=== PATIENT | female | born 1975 | race Caucasian/White ===

== ENCOUNTER 2016-05-18 12:04 | Emergency (ER) | payer BC ==
[~2016-05-18] VITALS: Ht 167.6 cm; Wt 113.4 kg
--- NOTE | 2016-05-18 12:45 | EKG ---
[address] [address] Test Date: 2016-05-18 Test Time: 12:44:37 Pat Name: HENNY DUMONT Department: Room: Gender: F Rod Placer: : 1975 Requested By: YOVANI RESENDEZ Order Number: [id number] Reading MD: Measurements Intervals [place] Rate: 65 P: 24 VT: 146 QRS: 16 QRSD: 96 T: 10 QT: 438 QTc: 461 Interpretive Statements SINUS RHYTHM NORMAL ECG RI6.01 Unconfirmed report No previous ECG available for comparison
[2016-05-18] MEDS: ONDANSETRON PF 4 MG/2 ML VIAL. IV ONE (12:49)
[2016-05-18] MEDS: FAMOTIDINE 20 MG/2 ML VIAL IVP ONE (12:49)
[2016-05-18] MEDS: IV NORMAL SALINE 1,000ML 1,000 ML IV SCH (12:49)
--- NOTE | 2016-05-18 12:56 | PHYS DOC ---
General Chief Complaint: n/v Stated Complaint: n/v,ABDOMINAL PAIN Time Seen by MD: 12:11 Source: patient Exam Limitations: no limitations Problems: History of Present Illness Initial Comments Pt is 40/F to ED c/o n/v. Pt states she's had few days right sided abdominal discomfort, n/v. Last night hurt so bad thought she may pass out. Persistent N/V today, no reported diarrhea no travel/bad food exposure +sick contacts similar sx. No blood in emesis, no fever/chills/cp/sob/ochoa/focal weakness. Appetite preserved but scared to eat w/nausea. No noted urinary sx Timing/Duration: getting worse (few days) Severity: moderate Modifying Factors: worse with eating, improves with rest Associated Symptoms: malaise, nausea/vomiting, other Allergies: Coded Allergies: No Known Drug Allergies (Unverified , 11/06/15) Past Medical History Medical History: other (depression, DM, kidney stones, UTI) Surgical History: cholecystectomy Social History Smoker: non-smoker Alcohol: none Drugs: none Review of Systems Constitutional: denies chills, denies diaphoresis, denies fever, malaise Respiratory: denies cough, denies shortness of breath Cardiovascular: denies chest pain, denies palpitations Gastrointestinal: see HPI Genitourinary: denies dysuria, denies frequency, denies hematuria Musculoskeletal: denies back pain, denies joint swelling, denies neck pain Psychiatric/Neurological: denies headache, denies numbness, denies paresthesia Physical Exam General Appearance: WD/WN, no apparent distress Eyes: bilateral eye EOMI, bilateral eye PERRL, bilateral eye normal inspection Ear, Nose, Throat: hearing grossly normal, normal ENT inspection Neck: non-tender, supple Respiratory: normal breath sounds, no respiratory distress Cardiovascular: normal peripheral pulses, regular rate, rhythm Gastrointestinal: soft (ND, generalized R-sided TTP no r/g/mass, neg keller/ mcburney) Rectal: deferred Back: no CVA tenderness, no vertebral tenderness Extremities: non-tender, normal inspection Neurologic/Psychiatric: [employer] II-XII nml as tested, no motor/sensory deficits, alert, normal mood/affect, oriented x 3 Skin: normal color, warm/dry Orders, Labs, Meds EKG: NSR 65 bpm, diffuse T flattening no STEMI PATIENT: JULIA,AUSTIN ACCOUNT: [id number] : 1975 LOCATION: ER AGE: 40 SEX: F EXAM STATUS: REG ER ORD. PHYSICIAN: YOVANI RESENDEZ DO REASON: n/v PROCEDURE: ACUTE ABDOMEN SERIES Acute abdomen series with chest, 3 views, 05/18/2016: History: Epigastric pain Gas is present in large and small bowel without significant bowel distention. There are a few small scattered air-fluid levels. No free air is evident in the abdomen. There is no evidence of organomegaly. There is a radiopacity overlying the left kidney raising the possibility of an intrarenal calculus. Surgical clips are present in the right upper quadrant compatible with a previous cholecystectomy. The heart is at the upper limits of normal in size. The pulmonary vascularity is within normal limits. No pulmonary infiltrates are seen. IMPRESSION: 1. A few small scattered air-fluid levels in the GI tract suggest a mild ileus. 2. Probable left intrarenal calculus. 3. Borderline cardiomegaly. DICTATED AND SIGNED BY: ANANDA WELLINGTON MD DATE: 05/18/16 1340 CC: HUGH FERNANDO MD; YOVANI RESENDEZ DO ~ Labs reassuring, UA + infection but SE contaminated await C/S 1407: Pt feeling much better with fluids/antiemetics. Ready for d/c Departure Time of Disposition: 14:08 Disposition: 01 HOME, SELF-CARE Diagnosis: gastroenteritis Condition: GOOD Patient Instructions: Viral Gastroenteritis, [id number] Additional Instructions: Work excuse thru 05/20 if needed. Rest, no strenuous activity. Aggressive hydration with gatorade, water. Clear liquids, advance slowly as tolerated. OTC tylenol/ibuprofen as needed. Rx: reglan, dicyclomine Follow up with your doctor in 3-5 days if not better. Return to ED with new or changing symptoms. YOVANI RESENDEZ DO May 18, 2016 12:56
[2016-05-18 12:57] LABS: BASO # 0.1 x10^3/uL (0.0-0.2); BASO % 1 % (0-3); EOS # 0.1 x10^3/uL (0.0-0.7); EOS % 1 % (0-3); HEMATOCRIT 44.2 % (36.0-47.0); HEMOGLOBIN 14.5 g/dL (12.0-15.5); LYMPH # 1.6 x10^3/uL (1.0-4.8); LYMPH % 29 % (24-48); MEAN CORPUSCULAR HEMOGLOBIN 29 pg (25-35); MEAN CORPUSCULAR HGB CONC 33 g/dL (31-37); MEAN CORPUSCULAR VOLUME 88 fL (79-100); MONO # 0.4 x10^3/uL (0.0-1.1); MONO % 7 % (0-9); NEUT # 3.4 x10^3uL (1.8-7.7); NEUT % 62 % (31-73); PLATELET COUNT 292 x10^3/uL (140-400); RED BLOOD COUNT 5.04 x10^6/uL (3.50-5.40); WHITE BLOOD COUNT 5.5 x10^3/uL (4.0-11.0)
[2016-05-18 13:10] LABS: ALBUMIN 3.7 g/dL (3.4-5.0); ALBUMIN/GLOBULIN RATIO 1.1 (1.0-1.7); CALCIUM 8.9 mg/dL (8.5-10.1); CREATININE 0.8 mg/dL (0.6-1.0); POTASSIUM 4.2 mmol/L (3.5-5.1); TOTAL BILIRUBIN 0.5 mg/dL (0.2-1.0); TOTAL PROTEIN 7.1 g/dL (6.4-8.2)
[2016-05-18 13:34] LABS: C REACTIVE PROTEIN 8.7 mg/L (0-3.3)
[2016-05-18 13:48] LABS: BACTERIA,URINE MOD /HPF (0-FEW); BILIRUBIN,URINE NEG (NEG); CLARITY,URINE CLOUDY; COLOR,URINE YELLOW; GLUCOSE,URINE NEG (NEG); NITRITE,URINE NEG (NEG); UROBILINOGEN,URINE 2 mg/dL (0.2 mg/dL)
[2016-05-18 13:49] LABS: SQUAMOUS EPITHELIAL CELL,UR FEW /LPF
[2016-05-18 13:50] LABS: AMPHETAMINE/METHAMPHETAMINE NEG (NEG); BARBITURATES NEG (NEG); BENZODIAZEPINES NEG (NEG); CANNABINOIDS NEG (NEG); COCAINE NEG (NEG); METHADONE NEG (NEG); OPIATES NEG (NEG); PHENCYCLIDINE NEG (NEG)
--- NOTE | 2016-05-18 13:54 | RAD ---
Acute abdomen series with chest, 3 views, 05/18/2016: History: Epigastric pain Gas is present in large and small bowel without significant bowel distention. There are a few small scattered air-fluid levels. No free air is evident in the abdomen. There is no evidence of organomegaly. There is a radiopacity overlying the left kidney raising the possibility of an intrarenal calculus. Surgical clips are present in the right upper quadrant compatible with a previous cholecystectomy. The heart is at the upper limits of normal in size. The pulmonary vascularity is within normal limits. No pulmonary infiltrates are seen. IMPRESSION: 1. A few small scattered air-fluid levels in the GI tract suggest a mild ileus. 2. Probable left intrarenal calculus. 3. Borderline cardiomegaly.
[2016-05-18 14:00] VITALS: BP 133/61
[2016-05-18] MEDS ORDERED: DICY20TA3 PO (14:11)
[2016-05-18] MEDS ORDERED: METO10TA81 PO (14:11)
== END 2016-05-18 14:20 | disposition home or self-care (01) ==
LOC: ER 12:04
DX: K52.9 Noninfective gastroenteritis and colitis, unspecified (principal); Z87.442 Personal history of urinary calculi; E11.9 Type 2 diabetes mellitus without complications; Z87.440 Personal history of urinary (tract) infections
CPT/HCPCS: 36415; 74022; 80053; 81001; 81025; 82550; 82947; 83605; 83690; 83735; 83880; 84484; 85027; 85610; 85730; 86140; 87086; 87186; 93005; 96361; 96374; 96375; 99285; G0480; G0481; J2405; S0028; J7030

== ENCOUNTER → 2016-09-09 | Outpatient (CLI) | payer BC ==
[~2016-09-09] MED LIST: DICY20TA3 PO; METO10TA81 PO
--- NOTE | 2016-09-09 15:57 | RAD ---
Left knee, 3 views, 09/09/2016: History: Knee pain No fracture or dislocation is identified. There is minimal spurring medially at the knee joint and at the patellofemoral articulation. No significant joint effusion is seen. Subcutaneous edema is evident anteriorly. IMPRESSION: No acute bony abnormality is detected.
== END | disposition home or self-care (01) ==
LOC: DXRADRC 14:55
PROVIDERS: ATTEND Family Medicine
DX: M25.862 Other specified joint disorders, left knee (principal); R60.0 Localized edema
CPT/HCPCS: 73562

== ENCOUNTER → 2016-10-01 | Outpatient (CLI) | payer BC ==
[~2016-10-01] MED LIST changes: +POTA20PA PO
--- NOTE | 2016-10-01 11:15 | RAD ---
Pelvic ultrasound, 10/01/2016: History: Dysfunctional uterine bleeding Transabdominal and transvaginal scans were obtained. The uterus measures 10.8 x 8.0 x 6.2 cm. There is a 5.7 cm predominantly hyperechoic mass in the posterior aspect of the uterus. It is distorting the central uterine echo complex which measures approximately 7 mm in AP dimension. There is an additional faint 1.8 cm focus of decreased echogenicity seen posteriorly in the myometrium. These are probably uterine fibroids. The ovaries are of normal size. Small follicular cysts are present in the right ovary. There is a 2.2 cm simple appearing cyst in the left ovary. The adnexal regions are otherwise unremarkable. No significant volume of free fluid is seen. IMPRESSION: 1. Enlarged uterus with a dominant 5.7 cm mass which is most likely a uterine fibroid. 2. Small left ovarian cyst.
== END | disposition home or self-care (01) ==
LOC: US 09:42
PROVIDERS: ATTEND Physician Assistant Medical
DX: N93.8 Other specified abnormal uterine and vaginal bleeding (principal); D25.9 Leiomyoma of uterus, unspecified; N83.292 Other ovarian cyst, left side
CPT/HCPCS: 76830; 76856

== ENCOUNTER 2016-10-02 20:10 | Emergency (ER) | payer BC ==
[~2016-10-02] VITALS: Ht 170.2 cm; Wt 129.7 kg
[~2016-10-02 20:10] MED LIST changes: -POTA20PA PO
[2016-10-02] MEDS ORDERED: IV NORMAL SALINE 1,000ML 500 ML IV SCH (20:29)
--- NOTE | 2016-10-02 20:29 | PHYS DOC ---
General Chief Complaint: VAGINAL BLEEDING Stated Complaint: VAGINAL BLEEDING X 1 MONTH Time Seen by MD: 20:24 Source: patient Exam Limitations: no limitations Problems: History of Present Illness Initial Comments Pt is 40/F to ED c/o vaginal bleeding. Pt states she's had vaginal bleeding for over a month. States she's going thru a pad every two minutes (I was in room with pt extended period with no pad change or pervasive bleeding). States she had US yesterday (see attached below ) and has been referred to PAYMENT PROCESSOR. Pt has an appointment scheduled for October. She has come because she doesn't want to wait that long. No new symptoms since she saw her doctor, no pain/palpitations/headache/leahy/lightheaded/dizzy/ cp. I advised her that we would check some labs and determine if emergent need for PAYMENT PROCESSOR. PATIENT: HENNY DUMONT ACCOUNT: [id number] : 1975 LOCATION: US AGE: 40 SEX: F EXAM STATUS: REG CLI ORD. PHYSICIAN: JODI PANDEY REASON: DUB PROCEDURE: US PELVIS W/TV Pelvic ultrasound, 10/01/2016: History: Dysfunctional uterine bleeding Transabdominal and transvaginal scans were obtained. The uterus measures 10.8 x 8.0 x 6.2 cm. There is a 5.7 cm predominantly hyperechoic mass in the posterior aspect of the uterus. It is distorting the central uterine echo complex which measures approximately 7 mm in AP dimension. There is an additional faint 1.8 cm focus of decreased echogenicity seen posteriorly in the myometrium. These are probably uterine fibroids. The ovaries are of normal size. Small follicular cysts are present in the right ovary. There is a 2.2 cm simple appearing cyst in the left ovary. The adnexal regions are otherwise unremarkable. No significant volume of free fluid is seen. IMPRESSION: 1. Enlarged uterus with a dominant 5.7 cm mass which is most likely a uterine fibroid. 2. Small left ovarian cyst. DICTATED AND SIGNED BY: ANANDA WELLINGTON MD DATE: 10/01/16 1107 CC: JODI PANDEY; HUGH FERNANDO MD ~ Timing/Duration: other (month) Severity/Quality: severe Location: vaginal Radiation: none Activities at Onset: none Prior Genitourinary Problems: none Modifying Factors: worse with movement, improves with rest, worse with urinating Associated Symptoms: other Allergies: Coded Allergies: No Known Drug Allergies (Unverified , 11/06/15) Past Medical History Medical History: other (depression, DM, kidney stones, UTI) Surgical History: cholecystectomy Social History Smoker: non-smoker Alcohol: none Drugs: none Review of Systems Constitutional: denies chills, denies diaphoresis, denies fever, denies malaise , denies weakness EENTM: denies eye pain, denies blurred vision, denies tearing, denies ear pain , denies nose pain Respiratory: denies cough, denies shortness of breath, denies wheezing Cardiovascular: denies chest pain, denies edema, denies palpitations, denies syncope Gastrointestinal: denies abdominal pain, denies diarrhea, denies nausea, denies vomiting Genitourinary: see HPI Musculoskeletal: denies back pain, denies joint swelling, denies neck pain Psychiatric/Neurological: denies headache, denies numbness, denies paresthesia Physical Exam General Appearance: WD/WN, no apparent distress HEENT: normal ENT inspection Neck: non-tender, supple Cardiovascular/Respiratory: normal peripheral pulses, normal breath sounds, no respiratory distress Gastrointestinal: normal bowel sounds, non tender, soft Rectal: deferred Back: no CVA tenderness, no vertebral tenderness Extremities: non-tender, normal inspection Neurologic/Psychiatric: rn discharge II-XII nml as tested, no motor/sensory deficits, alert, oriented x 3 Skin: normal color, warm/dry Orders, Labs, Meds K+ 3.3, Hb 11.4 normocytic 20meq KCL given I discussed findings with pt. No bleeding or pads changed in ED. No evidence hemodynamic instability. Pt stable to go home with K+ replacement and close PCP follow up Wednesday. See departure instructions. Departure Time of Disposition: 21:55 Disposition: HOME, SELF-CARE Diagnosis: DUB, Uterine fibroids Condition: STABLE Patient Instructions: Uterine Bleeding, Dysfunctional, [id number], Uterine Fibroid, [id number]-[id number] Additional Instructions: Rest, no strenuous activity. Aggressive hydration with gatorade, water. OTC ibuprofen 800mg every 8 hours (will decrease uterine artery blood flow, thereby decreasing the quantity and rate of bleeding). Rx: klor-con 20meq (3) take daily Follow up with your doctor Wednesday for recheck and to try to move your PAYMENT PROCESSOR appointment to this week. Return to ED with new or changing symptoms. YOVANI RESENDEZ DO Oct 02, 2016 20:28
[2016-10-02] MEDS ORDERED: MORPHINE SULFATE 4 MG/ML DISP.SYRIN. IV/SQ PRN (20:30)
[2016-10-02] MEDS ORDERED: IBUPROFEN 800 MG TABLET. PO ONE (21:00)
[2016-10-02 21:12] LABS: BASO # 0.1 x10^3/uL (0.0-0.2); BASO % 1 % (0-3); EOS # 0.3 x10^3/uL (0.0-0.7); EOS % 2 % (0-3); HEMATOCRIT 34.9 % (36.0-47.0); HEMOGLOBIN 11.4 g/dL (12.0-15.5); LYMPH # 2.6 x10^3/uL (1.0-4.8); LYMPH % 23 % (24-48); MEAN CORPUSCULAR HEMOGLOBIN 28 pg (25-35); MEAN CORPUSCULAR HGB CONC 33 g/dL (31-37); MEAN CORPUSCULAR VOLUME 87 fL (79-100); MONO # 0.4 x10^3/uL (0.0-1.1); MONO % 4 % (0-9); NEUT # 8.1 x10^3uL (1.8-7.7); NEUT % 70 % (31-73); PLATELET COUNT 381 x10^3/uL (140-400); RED BLOOD COUNT 4.03 x10^6/uL (3.50-5.40); RED CELL DISTRIBUTION WIDTH 14.6 % (11.5-14.5); WHITE BLOOD COUNT 11.6 x10^3/uL (4.0-11.0)
[2016-10-02 21:24] LABS: CALCIUM 8.5 mg/dL (8.5-10.1); CREATININE 0.7 mg/dL (0.6-1.0); GFR 92.2; POTASSIUM 3.3 mmol/L (3.5-5.1)
[2016-10-02] MEDS ORDERED: POTA20PA PO (21:55)
[2016-10-02] MEDS ORDERED: POTASSIUM CHLORIDE 20 MEQ TABLET.ER. PO ONE (22:15)
[2016-10-02 22:22] VITALS: BP 142/71
== END 2016-10-02 22:32 | disposition home or self-care (01) ==
LOC: ER 20:10
DX: N93.8 Other specified abnormal uterine and vaginal bleeding (principal); D25.9 Leiomyoma of uterus, unspecified; E11.9 Type 2 diabetes mellitus without complications; Z87.442 Personal history of urinary calculi; Z87.440 Personal history of urinary (tract) infections; Z90.49 Acquired absence of other specified parts of digestive tract
CPT/HCPCS: 36415; 80048; 84702; 85027; 85610; 85730; 96360; 99284-25; J7030

== ENCOUNTER 2017-03-08 09:18 | Emergency (ER) | payer BC ==
[~2017-03-08] VITALS: Ht 167.6 cm; Wt 117.9 kg
[~2017-03-08 09:18] MED LIST changes: +POTA20PA PO
[2017-03-08] MEDS ORDERED: IV NORMAL SALINE 1,000ML 1,000 ML IV ONE (10:00)
--- NOTE | 2017-03-08 10:22 | PHYS DOC ---
Past History Past Medical History: Depression, Diabetes, Kidney Stones, UTI, Other Past Surgical History: Cholecystectomy Smoking: Non-smoker Alcohol Use: None Drug Use: None Adult General Chief Complaint Chief Complaint: VAGINAL BLEEDING HPI HPI 41-year-old male patient complaining of heavy vaginal bleeding since this morning with passing blood clots. Patient states she needs to change her pad every 2 or 3 minutes. Patient states her LMP was 10 days ago. Patient complaining of cramping abdominal pain and rated her pain 8/10. Patient complaining of generalized weakness. Patient states she has had abnormal vaginal bleeding for 2 years and was seen by LEAN ENGINEER who recommended hysterectomy but she decided to take months delayed of procedure with the hope to get because she just one year ago. Review of Systems Review of Systems Constitutional: Denies fever or chills, reports weakness [] Eyes: Denies change in visual acuity, redness, or eye pain [] HENT: Denies nasal congestion or sore throat [] Respiratory: Denies cough or shortness of breath [] Cardiovascular: No additional information not addressed in HPI [] GI: Denies abdominal pain, nausea, vomiting, bloody stools or diarrhea [] : Denies dysuria or hematuria , reports vaginal bleeding[] Musculoskeletal: Denies back pain or joint pain [] Integument: Denies rash or skin lesions [] Neurologic: Denies headache, focal weakness or sensory changes [] Endocrine: Denies polyuria or polydipsia [] All other systems were reviewed and found to be within normal limits, except as documented in this note. Current Medications Current Medications Current Medications Medications (Trade) Dose Ordered [facility] Start Time Stop Time Status Last Admin Dose Admin Sodium Chloride 1,000 ml @ 1,000 mls/hr 1X ONCE 03/08/17 10:00 03/08/17 10:59 03/08/17 10:19 1,000 MLS/HR Allergies Allergies Allergies Coded Allergies Type Severity Reaction Last Updated Verified No Known Drug Allergies 11/06/15 No Physical Exam Physical Exam Constitutional: Well nourished, mild distress, non-toxic appearance, anxious. [] HENT: Normocephalic, atraumatic, bilateral external ears normal, oropharynx moist, no oral exudates, nose normal. [] Eyes: PERRLA, EOMI, conjunctiva normal, no discharge. [] Neck: Normal range of motion, no tenderness, supple, no stridor. [] Cardiovascular:Heart rate regular rhythm, no murmur [] Lungs & Thorax: Bilateral breath sounds clear to auscultation [] Abdomen: Bowel sounds normal, soft, no tenderness, no masses, no pulsatile masses. [] Skin: Warm, dry, no erythema, no rash. [] Back: No tenderness, no CVA tenderness. [] Extremities: No tenderness, no cyanosis, no clubbing, ROM intact, no edema. [] Neurologic: Alert and oriented X 3, normal motor function, normal sensory function, no focal deficits noted. [] Psychologic: Affect normal, judgement normal, mood normal. [ Vaginal exam with present of call taker showed mild vaginal bleeding without] clot EKG EKG [] Radiology/Procedures Radiology/Procedures [] Course & Med Decision Making Course & Med Decision Making Pertinent Labs reviewed. (See chart for details) Evaluation of patient in ER showed young lady with complaining of irregular vaginal bleeding for 2 years that getting worse. She seen by her LEAN ENGINEER and recommended to have hysterectomy. Patient postponed the procedure. Patient had hemoglobin of 11 in January and her hemoglobin dropped to 8.5. Patient has appointment with your LEAN ENGINEER in 3 days and recommended to follow with her OB/ CLOTHES DESIGNER for hysterectomy. Dragon Disclaimer Dragon Disclaimer This electronic medical record was generated, in whole or in part, using a voice recognition dictation system. Departure Departure: Impression: Primary Impression: Menometrorrhagia Additional Impression: Anemia Disposition: HOME, SELF-CARE (At 1210) Condition: IMPROVED Referrals: HUGH FERNANDO MD (PCP) Patient Instructions: Menorrhagia, [id number]-af-[id number] Additional Instructions: Follow-up with your LEAN ENGINEER in 3 days as scheduled for final treatment of abnormal vaginal bleeding Take iron pills 3 times a day Return to emergency room if not feeling better Scripts Naproxen (NAPROSYN) 500 Mg Tablet 1 TAB PO BID, #20 TAB 2 Refills Prov: ALYSSA HERNANDEZ MD 03/08/17 Problem Qualifiers ALYSSA HERNANDEZ MD Mar 08, 2017 10:22
[2017-03-08 10:26] LABS: ALBUMIN 2.9 g/dL (3.4-5.0); ALBUMIN/GLOBULIN RATIO 0.8 (1.0-1.7); CALCIUM 8.6 mg/dL (8.5-10.1); CREATININE 0.8 mg/dL (0.6-1.0); GFR 78.7; POTASSIUM 3.4 mmol/L (3.5-5.1); TOTAL BILIRUBIN 0.1 mg/dL (0.2-1.0); TOTAL PROTEIN 6.5 g/dL (6.4-8.2)
[2017-03-08 11:25] LABS: BASO # 0.1 x10^3/uL (0.0-0.2); BASO % 1 % (0-3); EOS # 0.2 x10^3/uL (0.0-0.7); EOS % 2 % (0-3); HEMATOCRIT 26.8 % (36.0-47.0); HEMOGLOBIN 8.5 g/dL (12.0-15.5); LYMPH % 35 % (24-48); MEAN CORPUSCULAR HEMOGLOBIN 23 pg (25-35); MEAN CORPUSCULAR HGB CONC 32 g/dL (31-37); MEAN CORPUSCULAR VOLUME 71 fL (79-100); MONO # 0.5 x10^3/uL (0.0-1.1); MONO % 6 % (0-9); NEUT # 4.8 x10^3uL (1.8-7.7); NEUT % 55 % (31-73); PLATELET COUNT 463 x10^3/uL (140-400); RED CELL DISTRIBUTION WIDTH 17.4 % (11.5-14.5); WHITE BLOOD COUNT 8.6 x10^3/uL (4.0-11.0)
[2017-03-08 12:11] LABS: OVALOCYTES FEW; PLT ESTIMATE INCREASED (ADEQUATE); TEAR DROP CELLS OCC
[2017-03-08 12:12] LABS: ANISOCYTOSIS SLIGHT; HYPOCHROMIA MOD; MICROCYTOSIS MOD
[2017-03-08] MEDS ORDERED: NAPR-683 PO (12:12)
[2017-03-08 12:13] LABS: POLYCHROMASIA MOD
[2017-03-08 12:15] VITALS: BP 143/82
== END 2017-03-08 12:21 | disposition home or self-care (01) ==
LOC: ER 09:18
DX: N92.1 Excessive and frequent menstruation with irregular cycle (principal); D64.9 Anemia, unspecified; Z87.442 Personal history of urinary calculi; E11.9 Type 2 diabetes mellitus without complications; F32.9 Major depressive disorder, single episode, unspecified; Z90.49 Acquired absence of other specified parts of digestive tract
CPT/HCPCS: 36415; 80053; 85025; 85610; 96360; 99284-25; J7030

== ENCOUNTER 2017-11-22 22:30 | Emergency (ER) | payer BC ==
[~2017-11-22] VITALS: Ht 167.6 cm; Wt 113.4 kg
[2017-11-22 22:30] VITALS: BP 153/77
[~2017-11-22 22:30] MED LIST changes: +NAPR-683 PO; -POTA20PA PO; +POTA20PA30 PO
--- NOTE | 2017-11-22 22:42 | ED.ADGEN ---
Past History Past Medical History: Depression, Diabetes, Kidney Stones, UTI, Other Past Surgical History: Cholecystectomy Smoking: Non-smoker Alcohol Use: None Drug Use: None Adult General Chief Complaint Chief Complaint ".. I got these bumps on my head..."... " The one on the back... of my neck.. I ve had for years.. and now I got one on the Lt.side of head.. it is more tender.. I ve had it for 6 months.. " HPI HPI Patient is a 41 year old female who presents with above history and complaints of the sebaceous cysts. Patient has had one cyst for multiple years on the back of her neck consistent with approximately 1 cm diameter. Does not appear to be inflamed. Patient has a new sebaceous cyst on the left lateral parietal area of head. This cyst appears to be less than 0.5 cm. May be some mild inflammation of the site. There is no pointing abscesses and cellulitis. It is no adenopathy. Patient denies any history immunosuppression. Patient denies any trauma. Patient states her tetanus is up-to-date. No recent travel. No ill contacts. Patient normally follows with Dr. Rush. Review of Systems Review of Systems Constitutional: Denies fever or chills [] Eyes: Denies change in visual acuity, redness, or eye pain [] HENT: Denies nasal congestion or sore throat [] Respiratory: Denies cough or shortness of breath [] Cardiovascular: No additional information not addressed in HPI [] GI: Denies abdominal pain, nausea, vomiting, bloody stools or diarrhea [] : Denies dysuria or hematuria [] Musculoskeletal: Denies back pain or joint pain [] Integument: Denies rash or skin lesions []complaints of sebaceous cyst on right posterior neck and left parietal area of scalp Neurologic: Denies headache, focal weakness or sensory changes [] Endocrine: Denies polyuria or polydipsia [] All other systems were reviewed and found to be within normal limits, except as documented in this note. Family History Family History Noncontributory Current Medications Current Medications Current Medications Medications (Trade) Dose Ordered Sig/Karen Start Time Stop Time Status Last Admin Dose Admin Ibuprofen (Motrin) 600 mg 1X ONCE 11/22/17 23:15 11/22/17 23:16 DC 11/22/17 23:10 600 MG Allergies Allergies Allergies Coded Allergies Type Severity Reaction Last Updated Verified No Known Drug Allergies 11/06/15 No Physical Exam Physical Exam Constitutional: Well developed, well nourished, mild distress, non-toxic appearance. [] HENT: Normocephalic, atraumatic, bilateral external ears normal, oropharynx moist, no oral exudates, nose normal. []Sebaceous cyst as per history of present illness Eyes: PERRLA, EOMI, conjunctiva normal, no discharge. [] Neck: Normal range of motion, no tenderness, supple, no stridor. [] Cardiovascular:Heart rate regular rhythm, no murmur [] Lungs & Thorax: Bilateral breath sounds clear to auscultation [] Abdomen: Bowel sounds normal, soft, no tenderness, no masses, no pulsatile masses. [] Skin: Warm, dry, no erythema, no rash. [] Back: No tenderness, no CVA tenderness. [] Extremities: No tenderness, no cyanosis, no clubbing, ROM intact, no edema. [] Neurologic: Alert and oriented X 3, normal motor function, normal sensory function, no focal deficits noted. [] Psychologic: Affect anxious, judgement normal, mood normal. [] Current Patient Data Vital Signs Vital Signs Date Time Temp Pulse Resp B/P (MAP) Pulse Ox O2 Delivery O2 Flow Rate FiO2 11/22/17 22:30 98.7 86 18 100 Room Air EKG EKG [] Radiology/Procedures Radiology/Procedures [] Course & Med Decision Making Course & Med Decision Making Pertinent Labs and Imaging studies reviewed. (See chart for details). Massage cyst with Polysporin 4 times a day with Polysporin. If troublesome consider surgical consult to have a sebaceous cyst removed. Take over-the- counter Tylenol and ibuprofen for pain. Even after Surgical removal the cysts can return. [] Final Impression Final Impression 1. Sebaceous cyst[] Dragon Disclaimer Dragon Disclaimer This electronic medical record was generated, in whole or in part, using a voice recognition dictation system. ROSSY MCKEON MD Nov 22, 2017 22:42
[2017-11-22] MEDS ORDERED: IBUPROFEN 600 MG TABLET. PO ONE (23:15)
== END 2017-11-22 23:10 | disposition home or self-care (01) ==
LOC: ER 22:30
DX: L72.3 Sebaceous cyst (principal); E11.9 Type 2 diabetes mellitus without complications; Z87.442 Personal history of urinary calculi; Z87.440 Personal history of urinary (tract) infections; Z90.49 Acquired absence of other specified parts of digestive tract
CPT/HCPCS: 99282

== ENCOUNTER 2017-12-30 04:00 | Emergency (ER) | payer BC ==
[~2017-12-30] VITALS: Ht 167.6 cm; Wt 120.2 kg
--- NOTE | 2017-12-30 04:03 | ED.ADGEN ---
Past History Past Medical History: Depression, Diabetes, Gallstones, GERD, Hypothyroid, Kidney Stones, UTI, Other (ROSSY PENA MD) Past Surgical History: Appendectomy, Cholecystectomy, Hysterectomy (ROSSY PENA MD) Smoking: Non-smoker Alcohol Use: None Drug Use: None (ROSSY PENA MD) Adult General Chief Complaint Chief Complaint ".. I got really bad pain here in my back.. down here low on the Lt. side... it been going on 3 days.. and I ve been having diarrhea... but the pain is shanika like kidney stone pain.. I ve had a lot of them.. and I have renal cysts to that cause problem,s... (ROSSY PENA MD) HPI HPI Patient is a 42 year old female who presents with above hx and complaints of left flank pain. Patient states she's had the pain for the last 3 days. Pain is worse tonight and in her left lower flank. Pain radiates to her groin. Nothing makes the pain better. Patient also complaining of some episodes of diarrhea. Has not eaten since 9 PM yesterday night. Patient denies any intake of bad food. Patient denies any travel or specific ill contacts. Patient has had some dysuria.. Patient does have an extensive medical history with diagnosis of diabetes, metabolic syndrome, multiple kidney stones, GERD, renal cysts, thyroid disorder, anxiety and depression. Patient has had cholecystectomy and appendectomy and hysterectomy. Patient still has her ovaries. No history immunosuppression. No history of specific ill contacts. No exposures to reptiles or poultry. No history of recent travel. Patient does have a pet cat that is well. Patient noted pain is more severe during her last [employer] shift. (ROSSY PENA MD) Review of Systems Review of Systems Constitutional: Denies fever or chills [] Eyes: Denies change in visual acuity, redness, or eye pain [] HENT: Denies nasal congestion or sore throat [] Respiratory: Denies cough or shortness of breath [] Cardiovascular: No additional information not addressed in HPI [] GI: Complaints of abdominal pain, nausea, denies vomiting, bloody stools. Complaints of diarrhea [] : Complaints of dysuria Integument: Denies rash or skin lesions [] Neurologic: Denies headache, focal weakness or sensory changes [] Endocrine: Denies polyuria or polydipsia [] All other systems were reviewed and found to be within normal limits, except as documented in this note. (ROSSY PENA MD) Family History Family History Diabetes and hypertension (ROSSY PENA MD) Current Medications Current Medications Current Medications Medications (Trade) Dose Ordered Sig/Karen Start Time Stop Time Status Last Admin Dose Admin Ceftriaxone Sodium 1 gm/ Sodium Chloride 50 ml @ 100 mls/hr 1X ONCE 12/30/17 06:00 12/30/17 06:29 UNV Ceftriaxone Sodium (Rocephin) 1 gm ONCE ONCE 12/30/17 06:15 12/30/17 06:16 DC Ketorolac Tromethamine (Toradol 30mg Vial) 30 mg 1X ONCE 12/30/17 05:00 12/30/17 05:47 DC 12/30/17 05:26 30 MG Lactated Ringer's 1,000 ml @ 1,000 mls/hr Q1H 12/30/17 04:57 12/30/17 05:56 DC 12/30/17 05:26 1,000 MLS/HR Metronidazole 100 ml @ 100 mls/hr 1X ONCE 12/30/17 06:15 12/30/17 07:14 12/30/17 06:13 100 MLS/HR Morphine Sulfate (Morphine 10mg Syringe) 10 mg 1X ONCE 12/30/17 05:15 12/30/17 05:47 DC Ondansetron HCl (Zofran) 8 mg 1X ONCE 12/30/17 05:00 12/30/17 05:47 DC 12/30/17 05:26 8 MG (RAJESH PRICE DO) Current Medications See nursing for home meds (ROSSY PENA MD) Allergies Allergies Allergies Coded Allergies Type Severity Reaction Last Updated Verified No Known Drug Allergies 11/06/15 No (RAJESH PRICE DO) Physical Exam Physical Exam Constitutional: Moderately acute distress, non-toxic appearance. [] HENT: Normocephalic, atraumatic, bilateral external ears normal, oropharynx moist, no oral exudates, nose normal. [] Eyes: PERRLA, EOMI, conjunctiva normal, no discharge. [] Neck: Normal range of motion, no tenderness, supple, no stridor. [] Cardiovascular:Heart rate regular rhythm, no murmur [] Lungs & Thorax: Bilateral breath sounds equal at apex on auscultation [] Abdomen: Bowel sounds increased, soft, left flank tenderness, no masses, no pulsatile masses. Large right upper quadrant cholecystectomy scar. Lower pelvic scar. Patient declines rectal exam at this time. No saddle loss reported. Morbidly obese. Skin: Warm, dry, no erythema, no rash. [] Back: No tenderness, left CVA tenderness and percussion. Extremities: No tenderness, no cyanosis, no clubbing, ROM intact, no edema. No psoas or heeltap. Neurologic: Alert and oriented X 3, normal motor function, normal sensory function, no focal deficits noted. [] Psychologic: Affect anxious, judgement normal, mood normal. [] (ROSSY PENA MD) Current Patient Data Vital Signs Vital Signs Date Time Temp Pulse Resp B/P (MAP) Pulse Ox O2 Delivery O2 Flow Rate FiO2 12/30/17 04:00 98.4 75 20 98 Room Air (RAJESH PRICE ) Lab Results Laboratory Tests Test 12/30/17 04:00 12/30/17 04:57 12/30/17 05:10 Urine Collection Type Void Urine Color Yellow Urine Clarity Hazy Urine pH 5.5 Urine Specific Amalia 1.025 Urine Protein 30 mg/dl (NEG-TRACE) Urine Glucose (UA) Neg mg/dL (NEG) Urine Ketones (Stick) Neg mg/dL (NEG) Urine Blood Small (NEG) Urine Nitrite Neg (NEG) Urine Bilirubin Neg (NEG) Urine Urobilinogen Dipstick 0.2 mg/dL (0.2 mg/dL) Urine Leukocyte Esterase Mod (NEG) Urine RBC Occ /HPF (0-2) Urine WBC 5-10 /HPF (0-4) Urine Squamous Epithelial Cells Many /LPF Urine Bacteria Few /HPF (0-FEW) Urine Yeast Present /HPF Urine Opiates Screen Neg (NEG) Urine Methadone Screen Neg (NEG) Urine Barbiturates Neg (NEG) Urine Phencyclidine Screen Neg (NEG) Urine Amphetamine/Methamphetamine Neg (NEG) Urine Benzodiazepines Screen Neg (NEG) Urine Cocaine Screen Neg (NEG) Urine Cannabinoids Screen Neg (NEG) Urine Ethyl Alcohol Neg (NEG) Urine Test Negative (NEG) White Blood Count 27.1 x10^3/uL (4.0-11.0) H Red Blood Count 5.24 x10^6/uL (3.50-5.40) Hemoglobin 11.2 g/dL (12.0-15.5) L Hematocrit 36.2 % (36.0-47.0) Mean Corpuscular Volume 69 fL (79-100) L Mean Corpuscular Hemoglobin 21 pg (25-35) L Mean Corpuscular Hemoglobin Concent 31 g/dL (31-37) Red Cell Distribution Width 19.9 % (11.5-14.5) H Platelet Count 379 x10^3/uL (140-400) Neutrophils (%) (Auto) 93 % (31-73) H Lymphocytes (%) (Auto) 3 % (24-48) L Monocytes (%) (Auto) 4 % (0-9) Eosinophils (%) (Auto) 0 % (0-3) Basophils (%) (Auto) 0 % (0-3) Neutrophils # (Auto) 25.2 x10^3uL (1.8-7.7) H Lymphocytes # (Auto) 0.9 x10^3/uL (1.0-4.8) L Monocytes # (Auto) 1.0 x10^3/uL (0.0-1.1) Eosinophils # (Auto) 0.0 x10^3/uL (0.0-0.7) Basophils # (Auto) 0.1 x10^3/uL (0.0-0.2) Segmented Neutrophils % 74 % (35-66) H Band Neutrophils % 20 % (0-9) H Lymphocytes % 3 % (24-48) L Monocytes % 3 % (0-10) Platelet Estimate Adequate (ADEQUATE) Hypochromasia Slight Anisocytosis Slight Microcytosis Mod Prothrombin Time 10.6 SEC (9.4-11.4) Prothrombin Time INR 1.1 (0.9-1.1) PTT 29 SEC (23-33) Sodium Level 136 mmol/L (136-145) Potassium Level 3.4 mmol/L (3.5-5.1) L Chloride Level 102 mmol/L (98-107) Carbon Dioxide Level 26 mmol/L (21-32) Anion Gap 8 (6-14) Blood Urea Nitrogen 12 mg/dL (7-20) Creatinine 1.2 mg/dL (0.6-1.0) H Estimated GFR (Cockcroft-Gault) 49.0 Glucose Level 143 mg/dL (70-99) H Calcium Level 8.6 mg/dL (8.5-10.1) Total Bilirubin 0.3 mg/dL (0.2-1.0) Direct Bilirubin 0.1 mg/dL (0.0-0.2) Aspartate Amino Transferase (AST) 22 U/L (15-37) Alanine Aminotransferase (ALT) 30 U/L (14-59) Alkaline Phosphatase 98 U/L (46-116) Total Protein 6.7 g/dL (6.4-8.2) Albumin 3.1 g/dL (3.4-5.0) L Lipase 64 U/L (73-393) L Serum Test, Qualitative Negative (NEG) (RAJESH PRICE DO) Lab Results Laboratory Tests Test 12/30/17 04:00 12/30/17 04:57 12/30/17 05:10 Urine Collection Type Void Urine Color Yellow Urine Clarity Hazy Urine pH 5.5 Urine Specific Amalia 1.025 Urine Protein 30 mg/dl (NEG-TRACE) Urine Glucose (UA) Neg mg/dL (NEG) Urine Ketones (Stick) Neg mg/dL (NEG) Urine Blood Small (NEG) Urine Nitrite Neg (NEG) Urine Bilirubin Neg (NEG) Urine Urobilinogen Dipstick 0.2 mg/dL (0.2 mg/dL) Urine Leukocyte Esterase Mod (NEG) Urine RBC Occ /HPF (0-2) Urine WBC 5-10 /HPF (0-4) Urine Squamous Epithelial Cells Many /LPF Urine Bacteria Few /HPF (0-FEW) Urine Yeast Present /HPF Urine Opiates Screen Neg (NEG) Urine Methadone Screen Neg (NEG) Urine Barbiturates Neg (NEG) Urine Phencyclidine Screen Neg (NEG) Urine Amphetamine/Methamphetamine Neg (NEG) Urine Benzodiazepines Screen Neg (NEG) Urine Cocaine Screen Neg (NEG) Urine Cannabinoids Screen Neg (NEG) Urine Ethyl Alcohol Neg (NEG) Urine Test Negative (NEG) White Blood Count 27.1 x10^3/uL (4.0-11.0) H Red Blood Count 5.24 x10^6/uL (3.50-5.40) Hemoglobin 11.2 g/dL (12.0-15.5) L Hematocrit 36.2 % (36.0-47.0) Mean Corpuscular Volume 69 fL (79-100) L Mean Corpuscular Hemoglobin 21 pg (25-35) L Mean Corpuscular Hemoglobin Concent 31 g/dL (31-37) Red Cell Distribution Width 19.9 % (11.5-14.5) H Platelet Count 379 x10^3/uL (140-400) Neutrophils (%) (Auto) 93 % (31-73) H Lymphocytes (%) (Auto) 3 % (24-48) L Monocytes (%) (Auto) 4 % (0-9) Eosinophils (%) (Auto) 0 % (0-3) Basophils (%) (Auto) 0 % (0-3) Neutrophils # (Auto) 25.2 x10^3uL (1.8-7.7) H Lymphocytes # (Auto) 0.9 x10^3/uL (1.0-4.8) L Monocytes # (Auto) 1.0 x10^3/uL (0.0-1.1) Eosinophils # (Auto) 0.0 x10^3/uL (0.0-0.7) Basophils # (Auto) 0.1 x10^3/uL (0.0-0.2) Segmented Neutrophils % 74 % (35-66) H Band Neutrophils % 20 % (0-9) H Lymphocytes % 3 % (24-48) L Monocytes % 3 % (0-10) Platelet Estimate Adequate (ADEQUATE) Hypochromasia Slight Anisocytosis Slight Microcytosis Mod Prothrombin Time 10.6 SEC (9.4-11.4) Prothrombin Time INR 1.1 (0.9-1.1) PTT 29 SEC (23-33) Sodium Level 136 mmol/L (136-145) Potassium Level 3.4 mmol/L (3.5-5.1) L Chloride Level 102 mmol/L (98-107) Carbon Dioxide Level 26 mmol/L (21-32) Anion Gap 8 (6-14) Blood Urea Nitrogen 12 mg/dL (7-20) Creatinine 1.2 mg/dL (0.6-1.0) H Estimated GFR (Cockcroft-Gault) 49.0 Glucose Level 143 mg/dL (70-99) H Calcium Level 8.6 mg/dL (8.5-10.1) Total Bilirubin 0.3 mg/dL (0.2-1.0) Direct Bilirubin 0.1 mg/dL (0.0-0.2) Aspartate Amino Transferase (AST) 22 U/L (15-37) Alanine Aminotransferase (ALT) 30 U/L (14-59) Alkaline Phosphatase 98 U/L (46-116) Total Protein 6.7 g/dL (6.4-8.2) Albumin 3.1 g/dL (3.4-5.0) L Lipase 64 U/L (73-393) L Serum Test, Qualitative Negative (NEG) (ROSSY PENA MD) EKG EKG [] (ROSSY PENA MD) Radiology/Procedures Radiology/Procedures My interpretation of acute abdomen film shows no acute cardiopulmonary findings on chest portion of trauma. No free air in the diaphragm. Does have multiple cari from previous surgeries. Appears to have a nonobstructive bowel gas pattern. Psoas sign is visible on left.. (ROSSY PENA MD) Impressions: Abdominal and Pelvis CT, Without Contrast: History: Left sided abdominal pain. Comparison: None. Procedure: Axial images are obtained of the abdomen and pelvis, without IV or oral contrast. CT Abdomen without Contrast: Findings: Evaluation of solid organs is limited without contrast. Evaluation of stomach and bowel is limited without oral contrast. Liver: Normal. Spleen: Normal. Pancreas: Normal. Adrenal Glands: Normal. Kidneys: There is a 10 mm and 2 mm stone in the proximal left ureter with mild left hydronephrosis and minimal perinephric edema. There are a few additional stones the renal pelvises bilaterally. There is no free air or free fluid. There is no lymphadenopathy. Impression: Please see CT Pelvis without Contrast. End Impression. CT Pelvis without Contrast: Findings: The urinary bladder appears normal. There is no free fluid. There is no lymphadenopathy. There is no pericolonic inflammation identified. The appendix is normal. The uterus is not seen and may be surgically removed or small. The left ovary appears normal. The right ovary appears prominent measuring 4.6 x 2.7 cm. Impression: 1. Stone in the proximal left ureter with mild left hydronephrosis. 2.. Prominent right ovary could be secondary to an ovarian cyst. Recommend a follow-up ultrasound in 2-3 months. End impression PQRS Compliance Statement: One or more of the following individualized dose reduction techniques were utilized for this examination: 1. Automated exposure control 2. Adjustment of the mA and/or kV according to patient size 3. Use of iterative reconstruction technique Electronically signed by: Arnulfo Rodriguez III, MD (12/30/2017 6:17 AM) [facility] DICTATED AND SIGNED BY: ARNULFO RODRIGUEZ III, MD DATE: 12/30/17 0612 CC: ROSSY PENA MD; HUGH FERNANDO MD (RAJESH PRICE DO) Course & Med Decision Making Course & Med Decision Making Pertinent Labs and Imaging studies reviewed. (See chart for details). Discussed presentation, testing and tx.. currently with Dr. Teran. CT is currently pending. He will make disposition of pt. [] (ROSSY PENA MD) Course & Med Decision Making I took over the patient at sign out at [address] Pena. The official read of the CT shows a 10 mm and a 2 mm stone in the proximal left ureter. A 10 mm be highly unlikely to pass on its own. The patient also has a high white count and evidence of UTI, so this is an infected kidney stone. The patient has been given Flagyl and Rocephin in the ED. I discussed the patient with Dr. Mcdonald and he has recommended transfer to [place] and admit the patient under his name. I discussed this with the patient and she is in agreement with transfer. (RAJESH PRICE DO) Final Impression Final Impression 1. Lt. Flank Pain- renal vs colonic? 2. Diarrhea[] 3. UTI 4. Leukocytosis= 27.1 5. DM- 143 6. Anemia Microcytic Hypochromic 11.2 (ROSSY PENA MD) Dragon Disclaimer Dragon Disclaimer This electronic medical record was generated, in whole or in part, using a voice recognition dictation system. (ROSSY PENA MD) ROSSY PENA MD Dec 30, 2017 04:03 RAJESH PRICE DO Dec 30, 2017 06:40
[2017-12-30 04:55] LABS: BARBITURATES NEG (NEG); BENZODIAZEPINES NEG (NEG); CANNABINOIDS NEG (NEG); COCAINE NEG (NEG); METHADONE NEG (NEG); OPIATES NEG (NEG); PHENCYCLIDINE NEG (NEG)
[2017-12-30 04:56] LABS: BACTERIA,URINE FEW /HPF (0-FEW); BILIRUBIN,URINE NEG (NEG); CLARITY,URINE HAZY; COLOR,URINE YELLOW; GLUCOSE,URINE NEG (NEG); NITRITE,URINE NEG (NEG); RBC,URINE OCC /HPF (0-2); SQUAMOUS EPITHELIAL CELL,UR MANY /LPF; UROBILINOGEN,URINE 0.2 mg/dL (0.2 mg/dL)
[2017-12-30 04:57] LABS: YEAST,URINE PRESENT /HPF
[2017-12-30] MEDS ORDERED: IV RINGERS SOLUTION,LACTATED 1,000 ML IV SCH (04:57)
[2017-12-30 04:59] LABS: AMPHETAMINE/METHAMPHETAMINE NEG (NEG)
[2017-12-30] MEDS ORDERED: ONDANSETRON PF 4 MG/2 ML VIAL. IV ONE (05:00)
[2017-12-30] MEDS ORDERED: KETOROLAC 30 MG/ML VIAL. IV ONE (05:00)
[2017-12-30 05:10] LABS: U PREG PATIENT NEGATIVE (NEG)
[2017-12-30] MEDS ORDERED: MORPHINE SULFATE 10 MG/ML SYRINGE. SQ ONE (05:15)
[2017-12-30 05:24] LABS: BASO # 0.1 x10^3/uL (0.0-0.2); BASO % 0 % (0-3); EOS % 0 % (0-3); HEMATOCRIT 36.2 % (36.0-47.0); HEMOGLOBIN 11.2 g/dL (12.0-15.5); LYMPH # 0.9 x10^3/uL (1.0-4.8); LYMPH % 3 % (24-48); MEAN CORPUSCULAR HEMOGLOBIN 21 pg (25-35); MEAN CORPUSCULAR HGB CONC 31 g/dL (31-37); MEAN CORPUSCULAR VOLUME 69 fL (79-100); MONO % 4 % (0-9); NEUT # 25.2 x10^3uL (1.8-7.7); NEUT % 93 % (31-73); PLATELET COUNT 379 x10^3/uL (140-400); RED BLOOD COUNT 5.24 x10^6/uL (3.50-5.40); RED CELL DISTRIBUTION WIDTH 19.9 % (11.5-14.5); WHITE BLOOD COUNT 27.1 x10^3/uL (4.0-11.0)
[2017-12-30 05:36] LABS: PREG TEST PT QUAL NEGATIVE (NEG)
[2017-12-30 05:39] LABS: ALBUMIN 3.1 g/dL (3.4-5.0); CALCIUM 8.6 mg/dL (8.5-10.1); CREATININE 1.2 mg/dL (0.6-1.0); DIRECT BILIRUBIN 0.1 mg/dL (0.0-0.2); POTASSIUM 3.4 mmol/L (3.5-5.1); TOTAL BILIRUBIN 0.3 mg/dL (0.2-1.0); TOTAL PROTEIN 6.7 g/dL (6.4-8.2)
[2017-12-30 05:40] LABS: % BANDS 20 % (0-9); % LYMPHS 3 % (24-48); % MONOS 3 % (0-10); % SEGS 74 % (35-66); HYPOCHROMIA SLIGHT; PLT ESTIMATE ADEQUATE (ADEQUATE)
[2017-12-30 05:41] LABS: ANISOCYTOSIS SLIGHT; MICROCYTOSIS MOD
[2017-12-30] MEDS ORDERED: cefTRIAXone IV Push 1 GM VIAL. IVP ONE (06:15)
--- NOTE | 2017-12-30 06:20 | RAD ---
Abdominal and Pelvis CT, Without Contrast: History: Left sided abdominal pain. Comparison: None. Procedure: Axial images are obtained of the abdomen and pelvis, without IV or oral contrast. CT Abdomen without Contrast: Findings: Evaluation of solid organs is limited without contrast. Evaluation of stomach and bowel is limited without oral contrast. Liver: Normal. Spleen: Normal. Pancreas: Normal. Adrenal Glands: Normal. Kidneys: There is a 10 mm and 2 mm stone in the proximal left ureter with mild left hydronephrosis and minimal perinephric edema. There are a few additional stones the renal pelvises bilaterally. There is no free air or free fluid. There is no lymphadenopathy. Impression: Please see CT Pelvis without Contrast. End Impression. CT Pelvis without Contrast: Findings: The urinary bladder appears normal. There is no free fluid. There is no lymphadenopathy. There is no pericolonic inflammation identified. The appendix is normal. The uterus is not seen and may be surgically removed or small. The left ovary appears normal. The right ovary appears prominent measuring 4.6 x 2.7 cm. Impression: 1. Stone in the proximal left ureter with mild left hydronephrosis. 2.. Prominent right ovary could be secondary to an ovarian cyst. Recommend a follow-up ultrasound in 2-3 months. End impression PQRS Compliance Statement: One or more of the following individualized dose reduction techniques were utilized for this examination: 1. Automated exposure control 2. Adjustment of the mA and/or kV according to patient size 3. Use of iterative reconstruction technique Electronically signed by: Randy Owens III, MD (12/30/2017 6:17 AM) [facility]
--- NOTE | 2017-12-30 07:51 | RAD ---
Acute abdomen series with chest, 3 views, 12/30/2017: HISTORY: Left-sided abdominal pain Gas is present in large and small bowel without bowel distention. There are small scattered air-fluid levels in the colon. No free air seen in the abdomen. Surgical clips are present in the right upper quadrant. There is no evidence of organomegaly There is a radiopacity overlying the lateral aspect of the left kidney compatible with an intrarenal calculus. There is a faint 2-3 mm radiopacity projected over the left transverse process at L3 representing the patient's known ureteral calculus. The heart is mildly enlarged. No pulmonary infiltrate is seen. There is no evidence of pleural fluid. There are mild scattered degenerative changes in the spine. IMPRESSION: 1. Small obstructing calculus in the proximal left ureter. 2. Small left intrarenal calculus. 3. Scattered air-fluid levels in the colon may reflect diarrhea or a mild ileus. Electronically signed by: Christopher Bains MD (12/30/2017 7:48 AM) [facility]
[2017-12-30 08:57] VITALS: BP 111/59
== END 2017-12-30 09:26 | disposition short-term general hospital (02) ==
LOC: ER 04:00
DX: N39.0 Urinary tract infection, site not specified (principal); R19.7 Diarrhea, unspecified; E11.9 Type 2 diabetes mellitus without complications; D50.8 Other iron deficiency anemias; D72.828 Other elevated white blood cell count; N13.2 Hydronephrosis with renal and ureteral calculous obstruction; K21.9 Gastro-esophageal reflux disease without esophagitis; E03.9 Hypothyroidism, unspecified; Z87.442 Personal history of urinary calculi; Z87.440 Personal history of urinary (tract) infections; Z90.89 Acquired absence of other organs; Z90.49 Acquired absence of other specified parts of digestive tract; Z90.710 Acquired absence of both cervix and uterus
CPT/HCPCS: 36415; 74022; 74176; 80048; 80076; 80307; 81001; 81025; 83690; 84703; 85007; 85025; 85610; 85730; 87086; 96361; 96365; 96375; 99285; J0696; J1885; J2405; J3490; J7120; G0479

== ENCOUNTER 2018-07-18 11:38 | Emergency (ER) | payer BC ==
[~2018-07-18] VITALS: Ht 167.6 cm; Wt 121.0 kg
[2018-07-18 12:26] LABS: BASO % 0 % (0-3); EOS # 0.2 x10^3/uL (0.0-0.7); EOS % 4 % (0-3); HEMOGLOBIN 13.5 g/dL (12.0-15.5); LYMPH # 1.9 x10^3/uL (1.0-4.8); LYMPH % 33 % (24-48); MEAN CORPUSCULAR HEMOGLOBIN 25 pg (25-35); MEAN CORPUSCULAR HGB CONC 32 g/dL (31-37); MEAN CORPUSCULAR VOLUME 79 fL (79-100); MONO # 0.3 x10^3/uL (0.0-1.1); MONO % 6 % (0-9); NEUT # 3.3 x10^3uL (1.8-7.7); NEUT % 57 % (31-73); PLATELET COUNT 340 x10^3/uL (140-400); RED BLOOD COUNT 5.34 x10^6/uL (3.50-5.40); RED CELL DISTRIBUTION WIDTH 18.1 % (11.5-14.5); WHITE BLOOD COUNT 5.9 x10^3/uL (4.0-11.0)
--- NOTE | 2018-07-18 12:26 | PHYS DOC ---
Past History Past Medical History: Depression, Diabetes, Gallstones, GERD, Hypothyroid, Kidney Stones, UTI, Other Past Surgical History: Appendectomy, Cholecystectomy, Hysterectomy Smoking: Non-smoker Alcohol Use: None Drug Use: None Adult General Chief Complaint Chief Complaint: HEAD INJURY/TRAUMA HPI HPI 42-year-old female presents with fall and head injury. The patient slipped on some water at work 2 days ago. She hit her head on the bottom are of a] on the floor. She was not knocked unconscious. She had a small amount of bleeding in the left scalp. This was easily controlled. The patient went home fluoresceins the day. Yesterday, she had headaches most of the day and had a few episodes of vomiting. She continues to have left sided head pain and some intermittent nausea. She denies change in vision. She went to the workman's comp doctor and they sent her here for CT scan and evaluation. Review of Systems Review of Systems Constitutional: Denies fever or chills [] Eyes: Denies change in visual acuity, redness, or eye pain [] HENT: Denies nasal congestion or sore throat [] Respiratory: Denies cough or shortness of breath [] Cardiovascular: No additional information not addressed in HPI [] GI: Denies abdominal pain, nausea, vomiting, bloody stools or diarrhea [] : Denies dysuria or hematuria [] Musculoskeletal: Denies back pain or joint pain [] Integument: Denies rash or skin lesions [] Neurologic: Headache. Denies focal weakness or sensory changes [] Endocrine: Denies polyuria or polydipsia [] All other systems were reviewed and found to be within normal limits, except as documented in this note. Allergies Allergies Allergies Coded Allergies Type Severity Reaction Last Updated Verified No Known Drug Allergies 11/06/15 No Physical Exam Physical Exam Constitutional: Well developed, well nourished, no acute distress, non-toxic appearance. [] HENT: Normocephalic, atraumatic, bilateral external ears normal, oropharynx moist, no oral exudates, nose normal. [] Eyes: PERRLA, EOMI, conjunctiva normal, no discharge. [] Neck: Normal range of motion, no tenderness, supple, no stridor. [] Cardiovascular:Heart rate regular rhythm, no murmur [] Lungs & Thorax: Bilateral breath sounds clear to auscultation [] Abdomen: Bowel sounds normal, soft, no tenderness, no masses, no pulsatile masses. [] Skin: Warm, dry, no erythema, no rash. Small abrasion of the left side, just posterior to the anterior hairline[] Back: No tenderness, no CVA tenderness. [] Extremities: No tenderness, no cyanosis, no clubbing, ROM intact, no edema. [] Neurologic: Alert and oriented X 3, normal motor function, normal sensory function, no focal deficits noted. [] Psychologic: Affect normal, judgement normal, mood normal. [] Current Patient Data Vital Signs Vital Signs Date Time Temp Pulse Resp B/P (MAP) Pulse Ox O2 Delivery O2 Flow Rate FiO2 07/18/18 11:54 98.0 67 18 99 Room Air EKG EKG [] Radiology/Procedures Radiology/Procedures [] Impressions: CT HEAD WITHOUT CONTRAST 07/18/2018 12:08 PM Indication: Fall. Pain. Comparison: None available Procedure: Multidetector CT imaging of the head was performed without the administration of contrast. Findings: There is no evidence of acute intracranial hemorrhage. There is no evidence of acute territorial infarction. Please note that CT is limited for evaluation of acute ischemia. No mass effect or midline shift is identified . The ventricles and basilar cisterns have an appropriate appearance. No abnormal extra-axial fluid collections are seen. No acute osseous changes are identified. Impression: No evidence of acute intracranial abnormality CT DOSING PQRS STATEMENT: One or more of the following individualized dose reduction techniques were utilized for this examination: 1. Automated exposure control 2. Adjustment of the mA and/or kV according to patient size 3. Use of iterative reconstruction technique Electronically signed by: Yg Machado MD (07/18/2018 12:41 PM) [facility] DICTATED AND SIGNED BY: YG MACHADO MD DATE: 07/18/18 1243 CC: RAJESH PRICE DO; HUGH FERNANDO MD ~ Course & Med Decision Making Course & Med Decision Making Pertinent Labs and Imaging studies reviewed. (See chart for details) The patient's labs are unremarkable. Her head CT is negative for acute findings. I believe the patient has a mild concussion. I have advised supportive care. I will give her the next couple days off work as well. She is stable for discharge at this time. [] Dragon Disclaimer Dragon Disclaimer This electronic medical record was generated, in whole or in part, using a voice recognition dictation system. Departure Departure: Impression: Primary Impression: Concussion Disposition: 01 HOME, SELF-CARE Condition: STABLE Referrals: HUGH FERNANDO MD (PCP) Patient Instructions: Concussion and Brain Injury, [id number] Problem Qualifiers Primary Impression: Concussion Encounter type: initial encounter Loss of consciousness presence/duration: without LOC Qualified Codes: S06.0X0A - Concussion without loss of consciousness, initial encounter RAJESH PRICE DO July 18, 2018 12:26
[2018-07-18 12:41] LABS: ALBUMIN 3.4 g/dL (3.4-5.0); ALBUMIN/GLOBULIN RATIO 1.1 (1.0-1.7); CALCIUM 8.8 mg/dL (8.5-10.1); CREATININE 0.7 mg/dL (0.6-1.0); GFR 91.3; POTASSIUM 3.8 mmol/L (3.5-5.1); TOTAL BILIRUBIN 0.2 mg/dL (0.2-1.0); TOTAL PROTEIN 6.6 g/dL (6.4-8.2)
--- NOTE | 2018-07-18 12:44 | RAD ---
CT HEAD WITHOUT CONTRAST 07/18/2018 12:08 PM Indication: Fall. Pain. Comparison: None available Procedure: Multidetector CT imaging of the head was performed without the administration of contrast. Findings: There is no evidence of acute intracranial hemorrhage. There is no evidence of acute territorial infarction. Please note that CT is limited for evaluation of acute ischemia. No mass effect or midline shift is identified . The ventricles and basilar cisterns have an appropriate appearance. No abnormal extra-axial fluid collections are seen. No acute osseous changes are identified. Impression: No evidence of acute intracranial abnormality CT DOSING PQRS STATEMENT: One or more of the following individualized dose reduction techniques were utilized for this examination: 1. Automated exposure control 2. Adjustment of the mA and/or kV according to patient size 3. Use of iterative reconstruction technique Electronically signed by: Yg Camarena MD (07/18/2018 12:41 PM) [facility]
[2018-07-18 12:50] VITALS: BP 150/87
[2018-07-18] MEDS ORDERED: METOCLOPRAMIDE HCL 10 MG/2 ML VIAL. IV ONE (13:20)
[2018-07-18] MEDS ORDERED: diphenhydrAMINE 50 MG/ML VIAL IVP ONE (13:20)
[2018-07-18] MEDS ORDERED: KETOROLAC 30 MG/ML VIAL. IV ONE (13:20)
== END 2018-07-18 13:10 | disposition home or self-care (01) ==
LOC: ER 11:38
DX: S06.0X0A Concussion without loss of consciousness, initial encounter (principal); E11.9 Type 2 diabetes mellitus without complications; K21.9 Gastro-esophageal reflux disease without esophagitis; E03.9 Hypothyroidism, unspecified; Z87.442 Personal history of urinary calculi; Z87.440 Personal history of urinary (tract) infections; W01.198A Fall on same level from slipping, tripping and stumbling with subsequent striking against other object, initial encounter; Y93.89 Activity, other specified; Y92.89 Other specified places as the place of occurrence of the external cause; Y99.0 Civilian activity done for income or pay
CPT/HCPCS: 36415; 70450; 80053; 85025; 96374; 96375; 99285; J1200; J1885; J2765

== ENCOUNTER 2018-11-27 21:06 | Emergency (ER) | payer BC ==
[~2018-11-27] VITALS: Ht 167.6 cm; Wt 122.5 kg
[2018-11-27] MEDS ORDERED: HYDR-3165 PO (21:24)
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
[2018-11-27 22:15] VITALS: BP 128/82
[2018-11-27] MEDS ORDERED: HYDROcodone/APAP 5/325MG 1 TAB TABLET PO ONE (22:30)
[2018-11-27] MEDS ORDERED: NAPROXEN 500 MG TABLET PO ONE (22:30)
== END 2018-11-27 22:22 | disposition home or self-care (01) ==
LOC: ER 21:06
DX: M54.2 Cervicalgia (principal); R55 Syncope and collapse; G89.11 Acute pain due to trauma; E11.9 Type 2 diabetes mellitus without complications; K21.9 Gastro-esophageal reflux disease without esophagitis; E03.9 Hypothyroidism, unspecified; Z87.440 Personal history of urinary (tract) infections; Z87.442 Personal history of urinary calculi; V43.62XA Car passenger injured in collision with other type car in traffic accident, initial encounter; Y93.89 Activity, other specified; Y92.488 Other paved roadways as the place of occurrence of the external cause; Y99.8 Other external cause status
CPT/HCPCS: 70450; 72125; 99284-25

== ENCOUNTER 2019-05-22 09:27 | Emergency (ER) | payer BC ==
[~2019-05-22] VITALS: Ht 167.6 cm; Wt 126.2 kg
[2019-05-22 09:27] VITALS: BP 144/84
[~2019-05-22 09:27] MED LIST changes: +HYDR-3165 PO
[2019-05-22] MEDS ORDERED: IV NORMAL SALINE 1,000ML 1,000 ML IV SCH (09:56)
[2019-05-22] MEDS ORDERED: ASPIRIN 81 MG TAB.CHEW PO ONE (10:00)
[2019-05-22] MEDS ORDERED: ONDANSETRON PF 4 MG/2 ML VIAL. IVP ONE (10:00)
--- NOTE | 2019-05-22 10:17 | RAD ---
Examination: PORTABLE CHEST 1V History: Chest pain Comparison/Correlation: None Findings: Portable frontal view chest was obtained. Heart size and pulmonary vasculature are normal. No infiltrate or pleural effusion. Evaluation of the retrocardiac region may be limited due to patient body habitus and underpenetrated technique. No pneumothorax. Bony structures unremarkable. Impression: No suspicious process. Consider lateral view for more complete assessment of the retrocardiac region have clinically desired. Electronically signed by: Kin Sparks MD (05/22/2019 10:13 AM) [id number]
[2019-05-22 10:34] LABS: BASO # 0.1 x10^3/uL (0.0-0.2); BASO % 1 % (0-3); EOS # 0.2 x10^3/uL (0.0-0.7); EOS % 2 % (0-3); HEMATOCRIT 44.6 % (36.0-47.0); HEMOGLOBIN 14.5 g/dL (12.0-15.5); LYMPH # 2.6 x10^3/uL (1.0-4.8); LYMPH % 34 % (24-48); MEAN CORPUSCULAR HEMOGLOBIN 28 pg (25-35); MEAN CORPUSCULAR HGB CONC 32 g/dL (31-37); MEAN CORPUSCULAR VOLUME 88 fL (79-100); MONO # 0.4 x10^3/uL (0.0-1.1); MONO % 5 % (0-9); NEUT # 4.4 x10^3uL (1.8-7.7); NEUT % 58 % (31-73); PLATELET COUNT 291 x10^3/uL (140-400); RED BLOOD COUNT 5.09 x10^6/uL (3.50-5.40); RED CELL DISTRIBUTION WIDTH 16.5 % (11.5-14.5); WHITE BLOOD COUNT 7.6 x10^3/uL (4.0-11.0)
[2019-05-22 10:36] LABS: CALCIUM 8.5 mg/dL (8.5-10.1); CREATININE 0.6 mg/dL (0.6-1.0); GFR 108.6; POTASSIUM 3.9 mmol/L (3.5-5.1)
[2019-05-22 10:43] LABS: BACTERIA,URINE MOD /HPF (0-FEW); BILIRUBIN,URINE NEG (NEG); CLARITY,URINE HAZY; COLOR,URINE YELLOW; GLUCOSE,URINE NEG (NEG); NITRITE,URINE NEG (NEG); UROBILINOGEN,URINE 0.2 mg/dL (0.2 mg/dL)
[2019-05-22 10:44] LABS: SQUAMOUS EPITHELIAL CELL,UR MANY /LPF
[2019-05-22 10:45] LABS: ALBUMIN 3.2 g/dL (3.4-5.0); ALBUMIN/GLOBULIN RATIO 1.1 (1.0-1.7); MAGNESIUM 1.8 mg/dL (1.8-2.4); TOTAL BILIRUBIN 0.3 mg/dL (0.2-1.0)
[2019-05-22] MEDS ORDERED: ONDA4TAB12 PO (10:58)
[2019-05-22] MEDS ORDERED: DIPH1TAB PO (10:58)
[2019-05-22] MEDS ORDERED: DICL50TA4 PO (10:58)
--- NOTE | 2019-05-22 10:59 | PHYS DOC ---
Past History Past Medical History: Depression, Diabetes, Gallstones, GERD, Hypothyroid, IBS, Kidney Stones, UTI Past Surgical History: Appendectomy, Cholecystectomy, Hysterectomy Smoking: Non-smoker Alcohol Use: None Drug Use: None Adult General Chief Complaint Chief Complaint: BACK PAIN OR INJURY [facility] HPI Patient is a 43-year-old female who presents with complaint of chest and back discomfort for the last couple of days. Patient also indicates that she has been having some vomiting and diarrhea for the same period of time. She states that the pain in her chest and her back is worsened with deep breathing and describes the pain as sharp and stabbing in nature. She states that the nausea and vomiting is worsened when she tries to eat. She denies any fever. She denies any abdominal pain. [] Review of Systems Review of Systems Constitutional: Denies fever or chills [] Respiratory: Denies cough or shortness of breath [] Cardiovascular: No additional information not addressed in HPI [] GI: Denies abdominal pain. Complains of nausea with vomiting and diarrhea [] Musculoskeletal: Complains of midthoracic back pain [] Integument: Denies rash or skin lesions [] All other systems were reviewed and found to be within normal limits, except as documented in this note. Current Medications Current Medications Current Medications Medications (Trade) Dose Ordered Sig/Karen Start Time Stop Time Status Last Admin Dose Admin Aspirin (Children'S Aspirin) 324 mg 1X ONCE 05/22/19 10:00 05/22/19 10:02 DC Ondansetron HCl (Zofran) 4 mg 1X ONCE 05/22/19 10:00 05/22/19 10:02 DC Sodium Chloride 1,000 ml @ 1,000 mls/hr Q1H 05/22/19 09:56 05/22/19 10:55 Allergies Allergies Allergies Coded Allergies Type Severity Reaction Last Updated Verified No Known Drug Allergies 11/06/15 No Physical Exam Physical Exam Constitutional: Well developed, well nourished, no acute distress, non-toxic appearance. [] HENT: Normocephalic, atraumatic, bilateral external ears normal, oropharynx moist, no oral exudates, nose normal. [] Eyes: PERRLA, EOMI, conjunctiva normal, no discharge. [] Neck: Normal range of motion, no tenderness, supple, no stridor. [] Cardiovascular: Regular rate and rhythm. There is reproducible chest wall tenderness along the left sternal margin. [] Lungs & Thorax: Bilateral breath sounds clear to auscultation [] Abdomen: Bowel sounds normal, soft, no tenderness. [] Skin: Warm, dry, no erythema, no rash. [] Extremities: No tenderness, no cyanosis, no clubbing, ROM intact, no edema. [] Neurologic: Alert and oriented X 3, no focal deficits noted. [] Current Patient Data Vital Signs Vital Signs Date Time Temp Pulse Resp B/P (MAP) Pulse Ox O2 Delivery O2 Flow Rate FiO2 05/22/19 09:27 98.0 71 18 144/84 (104) 99 Room Air Lab Results Laboratory Tests Test 05/22/19 10:00 05/22/19 10:04 Urine Collection Type Unknown Urine Color Yellow Urine Clarity Hazy Urine pH 6.0 Urine Specific [place] 1.025 Urine Protein Neg (NEG-TRACE) Urine Glucose (UA) Neg mg/dL (NEG) Urine Ketones (Stick) Neg mg/dL (NEG) Urine Blood Neg (NEG) Urine Nitrite Neg (NEG) Urine Bilirubin Neg (NEG) Urine Urobilinogen Dipstick 0.2 mg/dL (0.2 mg/dL) Urine Leukocyte Esterase Trace (NEG) Urine RBC 1-2 /HPF (0-2) Urine WBC 5-10 /HPF (0-4) Urine Squamous Epithelial Cells Many /LPF Urine Bacteria Mod /HPF (0-FEW) Urine Mucus Slight /LPF White Blood Count 7.6 x10^3/uL (4.0-11.0) Red Blood Count 5.09 x10^6/uL (3.50-5.40) Hemoglobin 14.5 g/dL (12.0-15.5) Hematocrit 44.6 % (36.0-47.0) Mean Corpuscular Volume 88 fL (79-100) Mean Corpuscular Hemoglobin 28 pg (25-35) Mean Corpuscular Hemoglobin Concent 32 g/dL (31-37) Red Cell Distribution Width 16.5 % (11.5-14.5) H Platelet Count 291 x10^3/uL (140-400) Neutrophils (%) (Auto) 58 % (31-73) Lymphocytes (%) (Auto) 34 % (24-48) Monocytes (%) (Auto) 5 % (0-9) Eosinophils (%) (Auto) 2 % (0-3) Basophils (%) (Auto) 1 % (0-3) Neutrophils # (Auto) 4.4 x10^3uL (1.8-7.7) Lymphocytes # (Auto) 2.6 x10^3/uL (1.0-4.8) Monocytes # (Auto) 0.4 x10^3/uL (0.0-1.1) Eosinophils # (Auto) 0.2 x10^3/uL (0.0-0.7) Basophils # (Auto) 0.1 x10^3/uL (0.0-0.2) Sodium Level 144 mmol/L (136-145) Potassium Level 3.9 mmol/L (3.5-5.1) Chloride Level 108 mmol/L (98-107) H Carbon Dioxide Level 25 mmol/L (21-32) Anion Gap 11 (6-14) Blood Urea Nitrogen 7 mg/dL (7-20) Creatinine 0.6 mg/dL (0.6-1.0) Estimated GFR (Cockcroft-Gault) 108.6 BUN/Creatinine Ratio 12 (6-20) Glucose Level 104 mg/dL (70-99) H Calcium Level 8.5 mg/dL (8.5-10.1) Magnesium Level 1.8 mg/dL (1.8-2.4) Total Bilirubin 0.3 mg/dL (0.2-1.0) Aspartate Amino Transferase (AST) 18 U/L (15-37) Alanine Aminotransferase (ALT) 30 U/L (14-59) Alkaline Phosphatase 101 U/L (46-116) Troponin I Quantitative < 0.017 ng/mL (0-0.055) Total Protein 6.0 g/dL (6.4-8.2) L Albumin 3.2 g/dL (3.4-5.0) L Albumin/Globulin Ratio 1.1 (1.0-1.7) Lipase 75 U/L (73-393) EKG EKG EKG demonstrates normal sinus rhythm with rate of 60. [] Radiology/Procedures Radiology/Procedures [] Course & Med Decision Making Course & Med Decision Making Pertinent Labs and Imaging studies reviewed. (See chart for details) [] Dragon Disclaimer Dragon Disclaimer This electronic medical record was generated, in whole or in part, using a voice recognition dictation system. Departure Departure: Impression: Primary Impression: Gastroenteritis Additional Impression: Costochondritis Disposition: 01 HOME, SELF-CARE Condition: STABLE Referrals: HUGH FERNANDO MD (PCP) Patient Instructions: Costochondritis, Viral Gastroenteritis Scripts Ondansetron (ONDANSETRON ODT) 4 Mg Tab.rapdis 1 TAB PO PRN Q6-8HRS PRN for NAUSEA, #12 TAB Prov: FEDERICA GARZA Jr. DO 05/22/19 Diphenoxylate Hcl/Atropine (LOMOTIL TABLET) 1 Each Tablet 1 TAB PO TID PRN for DIARRHEA, #15 TAB Prov: FEDERICA GARZA Jr. DO 05/22/19 Diclofenac Sodium (DICLOFENAC SODIUM) 50 Mg Tablet.dr 1 TAB PO BID PRN for PAIN, #20 TAB Prov: FEDERICA GARZA Jr. DO 05/22/19 Problem Qualifiers FEDERICA GARZA Jr. DO May 22, 2019 10:58
--- NOTE | 2019-05-22 17:55 | EKG ---
[address] [address] Test Date: 2019-05-22 Test Time: 09:58:49 Pat Name: HENNY DUMONT Department: Room: Gender: F Specification Manager: : [id number] Requested By: FEDERICA GARZA Order Number: [id number] Reading MD: Measurements Intervals [place] Rate: 60 P: 24 [place]: 140 QRS: 27 QRSD: 94 T: 13 QT: 446 QTc: 446 Interpretive Statements SINUS RHYTHM QRS(T) CONTOUR ABNORMALITY CONSIDER ANTEROLATERAL MYOCARDIAL DAMAGE T ABNORMALITY IN ANTEROSEPTAL LEADS ABNORMAL ECG RI6.01 No previous ECG available for comparison
== END 2019-05-22 11:00 | disposition home or self-care (01) ==
LOC: ER 09:29
DX: K52.9 Noninfective gastroenteritis and colitis, unspecified (principal); M94.0 Chondrocostal junction syndrome [Tietze]; E11.9 Type 2 diabetes mellitus without complications; K21.9 Gastro-esophageal reflux disease without esophagitis; E03.9 Hypothyroidism, unspecified; Z87.442 Personal history of urinary calculi; Z87.440 Personal history of urinary (tract) infections; Z90.49 Acquired absence of other specified parts of digestive tract; Z90.89 Acquired absence of other organs; Z90.710 Acquired absence of both cervix and uterus
CPT/HCPCS: 36415; 71045; 80053; 81001; 83690; 83735; 84484; 85025; 87086; 93005; 96374; 99285; J2405